=== PATIENT | female | born 1960 | race Caucasian/White ===

== ENCOUNTER → 2016-09-24 | Outpatient (CLI) | payer BC ==
[~2016-09-24] MED LIST: ASPCH81X PO; B COCAP PO; CETI10TA84 PO; CHOL100010 PO; DIPH25CA37 PO; FLUO20CA35 PO; OXYC-643 PO
== END | disposition home or self-care (01) ==
LOC: C.PAPS 09:04
PROVIDERS: ATTEND Obstetrics & Gynecology
DX: Z01.419 Encounter for gynecological examination (general) (routine) without abnormal findings (principal)

== ENCOUNTER → 2016-10-15 | Outpatient (CLI) | payer BC ==
[2016-10-15 09:35] LABS: BASO % 0.3 %; BASO ABS # 0.01 K/uL (0-0.2); COMPLETE YES; EOS % 4.6 %; HEMATOCRIT 41.9 % (37-47); LYMPH % 30.8 %; LYMPH ABS # 0.94 K/uL (1.2-3.4); MEAN CELL VOLUME 86.7 fL (80-100); MEAN CORPUSCULAR HEMOGLOBIN 29.8 pg (25-34); MEAN CORPUSCULAR HGB CONC 34.4 g/dl (32-36); MEAN PLATELET VOLUME 9.5 fL (7.4-10.4); MONO % 8.5 %; NEUT % 55.8 %; PLATELET COUNT 278 K/uL (130-400); RED BLOOD COUNT 4.83 M/uL (4.2-5.4); WHITE BLOOD COUNT 3.05 K/uL (4.8-10.8)
[2016-10-15 10:08] LABS: CALCIUM 9.4 mg/dl (8.5-10.1)
[2016-10-15 10:11] LABS: ALKALINE PHOSPHATASE 63 U/L (45-117); ALT/SGPT 32 U/L (12-78); AST/SGOT 18 U/L (15-37); BLOOD UREA NITROGEN 19 mg/dl (7-18); BUN/CREATININE RATIO 20.3 (10-20); CARBON DIOXIDE 28 mmol/L (21-32); CHLORIDE 104 mmol/L (98-107); CHOLESTEROL 184 mg/dl (0-200); CREATININE 0.92 mg/dl (0.60-1.20); GLUCOSE 85 mg/dl (70-99); SODIUM 141 mmol/L (136-145); TRIGLYCERIDES 70 mg/dl (0-150); VERY LOW DENSITY LIPOPROT CALC 14 mg/dl
[2016-10-15 10:18] LABS: ESTIMATED AVERAGE GLUCOSE 105 mg/dl; HA1C FLAG Normal (Normal)
[2016-10-15 10:21] LABS: ALB/GLOB RATIO 1.1 (0.9-2); HDL CHOLESTEROL 61 mg/dl
== END | disposition home or self-care (01) ==
LOC: C.LAB1850 07:40
PROVIDERS: ATTEND Internal Medicine
DX: R63.1 Polydipsia (principal); E78.5 Hyperlipidemia, unspecified; R53.83 Other fatigue; Z11.59 Encounter for screening for other viral diseases

== ENCOUNTER → 2017-12-09 | Outpatient (CLI) | payer BC ==
--- NOTE | 2017-12-09 14:57 | MAMMOGRAPHY REPORT ---
BILATERAL DIGITAL SCREENING MAMMOGRAM TOMOSYNTHESIS WITH CAD: 12/09/2017 CLINICAL HISTORY: Routine screening. Patient has no complaints. TECHNIQUE: The study was acquired using full field digital technology and interpreted from soft copy. Breast tomosynthesis in addition to standard 2D mammography was performed. Current study was also ev aluated with a Computer Aided Detection (CAD) system. COMPARISON: Comparison is made to exams dated: 01/26/2016 mammogram, 01/24/2015 mammogram, 01/15/2011 m ammogram, 07/27/2009 mammogram, 07/02/2005 mammogram, and 09/03/2002 mammogram - [facility] er. BREAST COMPOSITION: There are scattered areas of fibroglandular density in both breasts. FINDINGS: There is a benign oval circumscribed mass in the 6:00 anterior right breast, that appears s table to decreased dating back to 2005, therefore considered benign. No suspicious mass, architectura l distortion or cluster of microcalcifications is seen. IMPRESSION: ACR BI-RADS CATEGORY 1: NEGATIVE There is no mammographic evidence of malignancy. A 1 year screening mammogram is recommended.( [id number]) The patient will receive written notification of the results. Some breast cancers are not detected with mammography. A negative mammographic report should not rena y biopsy if a clinically suggestive mass is present. Hiwot Levine M.D. ay/:12/09/2017 08:22:15 [employer]: RT Lori(Mitali)(M), [facility] letter sent: Normal 1/2 BI-RADS Code: ACR BI-RADS Category 1: Negative
== END | disposition home or self-care (01) ==
LOC: C.MAMM 07:25
PROVIDERS: ATTEND Obstetrics & Gynecology
DX: Z12.31 Encounter for screening mammogram for malignant neoplasm of breast (principal)